=== PATIENT | female | born 1970 | race Caucasian/White ===

== ENCOUNTER 2017-03-11 20:09 | Emergency (ER) | payer MEDICAID ==
[~2017-03-11] VITALS: Ht 160 cm; Wt 76.7 kg
[2017-03-11 20:12] VITALS: BP 142/90
--- NOTE | 2017-03-11 20:45 | NUR ---
TO ER BED 8
--- NOTE | 2017-03-11 20:59 | NUR ---
PT IS 46/F BIB SELF TO ED WITH ABD PAIN X 1 WEEK, WITH N/V . DENIES D; SKIN IS PINK/WARM/DRY; AAOX4 WITH EVEN AND STEADY GAIT; LUNGS CLEAR BL; HR EVEN AND REGULAR; PT DENIES ANY FEVER, CP, SOB, OR COUGH AT THIS TIME; PATIENT STATES PAIN OF 9/10 AT THIS TIME; VSS; PATIENT POSITIONED FOR COMFORT; HOB ELEVATED; BEDRAILS UP X2; BED DOWN. ER MD MADE AWARE OF PT STATUS.
[2017-03-11] MEDS ORDERED: DICYCLOMINE HCL LIQUID 10 MG/5 ML UDC PO ONE (21:00)
[2017-03-11] MEDS ORDERED: ONDANSETRON 4 MG/2 ML VIAL IVP ONE (21:00)
[2017-03-11] MEDS ORDERED: LIDOCAINE VISCOUS 2% 20 ML UDC PO ONE (21:00)
[2017-03-11] MEDS ORDERED: ALUMINUM HYD/MAG/SIMETHICONE 30 ML UDC PO ONE (21:00)
[2017-03-11] MEDS ORDERED: MORPHINE SULFATE 2 MG/ML SYR IVP ONE (21:25)
[2017-03-11] MEDS ORDERED: KETOROLAC 30 MG/ML VIAL IVP ONE (21:35)
[2017-03-11] MEDS ORDERED: NACL 0.9% 1,000 ML IV ONE (22:35)
--- NOTE | 2017-03-11 22:45 | NUR ---
PT RESTING IN BED NO SOB NOTED. WILL CONTINUE TO CLOSELY MONITOR
--- NOTE | 2017-03-11 23:25 | NUR ---
PT TAKEN OFF UNIT TO CT VIA WHEELCHAIR
--- NOTE | 2017-03-11 23:55 | NUR ---
PT BACK ON UNIT FROM CT
[2017-03-12 01:03] VITALS: BP 126/76
--- NOTE | 2017-03-12 01:04 | NUR ---
Patient discharged with v/s stable. Written and verbal after care instructions given and explained. Patient alert, oriented and verbalized understanding of instructions. Ambulatory with steady gait. All questions addressed prior to discharge. ID band removed. Patient advised to follow up with PMD. Rx of CIPRO, FLAGYL given. Patient educated on indication of medication including possible reaction and side effects. Opportunity to ask questions provided and answered.
== END 2017-03-12 01:03 | disposition home or self-care (01) ==
LOC: MED 20:09
DX: K52.9 Noninfective gastroenteritis and colitis, unspecified (principal); F17.210 Nicotine dependence, cigarettes, uncomplicated; Z88.0 Allergy status to penicillin
CPT/HCPCS: 36415; 74177; 80053; 81001; 82150; 83690; 84703; 85025; 87086; 96361; 96374; 96375; 99285; J1885; J2405; Q9967

== ENCOUNTER 2017-09-15 13:40 | Emergency (ER) | payer MEDICAID, MEDICARE ==
[~2017-09-15] VITALS: Ht 157.5 cm; Wt 75.3 kg
[2017-09-15 14:21] VITALS: BP 133/83
--- NOTE | 2017-09-15 14:54 | NUR ---
Patient ambulated to bed 11.
--- NOTE | 2017-09-15 14:55 | NUR ---
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 PT STATES SHE FEELS A LUMP L LABIA.DENIES DISCHARGE OR BLEEDING.AAOX4 WITH EVEN AND STEADY GAIT; LUNGS CLEAR BL; PATIENT STATES PAIN OF 10/10 AT THIS TIME; PATIENT POSITIONED FOR COMFORT; HOB ELEVATED; BEDRAILS UP X2; BED DOWN. ER MD MADE AWARE OF PT STATUS.
[2017-09-15] MEDS ORDERED: MORPHINE SULFATE 4 MG/ML SYR IM ONE (15:10)
[2017-09-15] MEDS ORDERED: KETOROLAC 30 MG/ML VIAL IVP ONE (15:10)
[2017-09-15] MEDS ORDERED: ONDANSETRON 4 MG/2 ML VIAL IVP ONE (15:10)
[2017-09-15] MEDS ORDERED: NACL 0.9% 1,000 ML IV SCH (15:10)
[2017-09-15 15:45] LABS: BASOPHILS # (AUTO) 0.3 K/uL (0.00-0.22); BASOPHILS % (AUTO) 1.6 % (0.0-2.0); EOSINOPHILS # (AUTO) 0.1 K/uL (0-0.4); EOSINOPHILS % (AUTO) 0.8 % (0.0-4.0); HEMATOCRIT 41.8 % (36-48); HEMOGLOBIN 13.7 g/dL (12.0-16.0); LYMPHOCYTES # (AUTO) 3.5 K/uL (2.5-16.5); MEAN CORPUSCULAR HEMOGLOBIN 29 pg (27-31); MEAN CORPUSCULAR HGB CONC 33 g/dL (33-37); MEAN CORPUSCULAR VOLUME 89 fL (80-94); MONOCYTES # (AUTO) 0.9 K/uL (0.8-1.0); MONOCYTES % (AUTO) 5.6 % (1.7-9.3); NEUTROPHILS # (AUTO) 11.2 K/uL (1.8-7.7); PLATELET COUNT (AUTO) 202 K/uL (140-450); RED BLOOD CELL COUNT(AUTO) 4.71 MIL/uL (4.20-5.40); RED CELL DISTRIBUTION WIDTH 12.1 % (11.6-13.7)
[2017-09-15 15:56] LABS: ANION GAP 10.6 (8-16); CARBON DIOXIDE 29.1 mmol/L (21-32); CREATININE 0.7 mg/dL (0.6-1.3); POTASSIUM 3.7 mmol/L (3.5-5.1)
[2017-09-15] MEDS ORDERED: cefTRIAXone 2,000 MG in DEXTROSE 5% 100 ML IV ONE (16:00)
[2017-09-15 16:01] LABS: ALBUMIN 3.2 g/dL (3.4-5.0); TOTAL BILIRUBIN 0.5 mg/dL (0.0-1.0)
[2017-09-15] MEDS ORDERED: cefTRIAXone 2,000 MG in NACL 0.9% 100 ML IV ONE (16:30)
[2017-09-15] MEDS ORDERED: cefTRIAXone 2,000 MG VIAL ONE (16:33)
--- NOTE | 2017-09-15 16:43 | NUR ---
Note jose m in EDM - 09/15/17 at 1644 by [email or web address] Patient appears to be resting comfortably in bed. BP 172/81; MADE AWARE. Respirations even and unlabored.WILL CONTINUE TO MONITOR.
[2017-09-15] MEDS ORDERED: MORPHINE SULFATE 4 MG/ML SYR IVP ONE (17:05)
[2017-09-15 17:27] LABS: APPEARANCE,URINE CLEAR (CLEAR); BILIRUBIN,URINE NEGATIVE (NEGATIVE); BLOOD, URINE TRACE-I (NEGATIVE); COLOR,URINE YELLOW (YELLOW); LEUKOCYTE ESTERASE ,URINE TRACE (NEGATIVE); NITRITE, URINE NEGATIVE (NEGATIVE); PH,URINE 5.5 (5.0-9.0); UGLUCOSE NEGATIVE (NEGATIVE)
[2017-09-15 17:40] VITALS: BP 115/69
--- NOTE | 2017-09-15 17:40 | NUR ---
Patient discharged with v/s stable. Written and verbal after care instructions given and explained. Patient alert, oriented and verbalized understanding of instructions. Ambulatory with steady gait. All questions addressed prior to discharge. ID band removed. Patient advised to follow up with PMD. Rx of IBUPROFEN, LEVAQUIN& NORCO given. Patient educated on indication of medication including possible reaction and side effects. Opportunity to ask questions provided and answered.
[2017-09-15 17:51] LABS: RBC,URINE 0-5 (RARE) /HPF (0-5); WBC,URINE 0-5 (RARE) /HPF (0-5)
== END 2017-09-15 15:12 | disposition home or self-care (01) ==
LOC: MED 13:40
DX: N90.7 Vulvar cyst (principal); Z88.0 Allergy status to penicillin
CPT/HCPCS: 36415; 76856; 80053; 81001; 83690; 84703; 85025; 96361; 96365; 96372; 96375; 99285; J0696; J1885; J2270; J2405; J7030; Q0092

== ENCOUNTER 2018-01-29 20:46 | Emergency (ER) | payer MEDICAID, MEDICARE ==
[~2018-01-29] VITALS: Ht 160 cm; Wt 73.0 kg
[2018-01-29 20:50] VITALS: BP 139/90
[2018-01-29 21:02] VITALS: BP 139/90
--- NOTE | 2018-01-29 21:03 | NUR ---
TO ER BED 10
[2018-01-29] MEDS ORDERED: NACL 0.9% 1,000 ML IV ONE (21:05)
--- NOTE | 2018-01-29 21:10 | NUR ---
ASSUMED CARE OF PT AT THIS TIME. C/O ELEVATED BLOOD SUGAR. PT DENIES ANY OTHER MEDICAL COMPLAINTS AT THIS TIME. DENIES N/V/D; SKIN IS PINK/WARM/DRY; AAOX4 WITH EVEN AND STEADY GAIT; LUNGS CLEAR BL; HR EVEN AND REGULAR; PT DENIES ANY FEVER, CP, SOB, OR COUGH AT THIS TIME; PATIENT STATES PAIN OF 0/10 AT THIS TIME; VSS; PATIENT POSITIONED FOR COMFORT; HOB ELEVATED; BEDRAILS UP X2; BED DOWN. ER MD MADE AWARE OF PT STATUS.
[2018-01-29 21:46] LABS: BASOPHILS % (AUTO) 0.3 % (0.0-2.0); EOSINOPHILS # (AUTO) 0.1 K/uL (0-0.4); EOSINOPHILS % (AUTO) 1.1 % (0.0-4.0); HEMOGLOBIN 14.1 g/dL (12.0-16.0); LYMPHOCYTES # (AUTO) 4.3 K/uL (2.5-16.5); LYMPHOCYTES % (AUTO) 39.3 % (20.5-51.1); MEAN CORPUSCULAR HEMOGLOBIN 30 pg (27-31); MEAN CORPUSCULAR HGB CONC 34 g/dL (33-37); MEAN CORPUSCULAR VOLUME 87.9 fL (80-94); MONOCYTES # (AUTO) 0.6 K/uL (0.8-1.0); MONOCYTES % (AUTO) 5.8 % (1.7-9.3); NEUTROPHILS # (AUTO) 5.8 K/uL (1.8-7.7); NEUTROPHILS % (AUTO) 53.5 % (42.2-75.2); PLATELET COUNT (AUTO) 179 K/uL (140-450); RED BLOOD CELL COUNT(AUTO) 4.78 MIL/uL (4.20-5.40); RED CELL DISTRIBUTION WIDTH 12.9 % (11.6-13.7); WHITE BLOOD COUNT (AUTO) 10.9 K/uL (4.8-10.8)
[2018-01-29 22:09] LABS: ANION GAP 9.6 (8-16); CARBON DIOXIDE 31.2 mmol/L (21-32); CREATININE 0.7 mg/dL (0.6-1.3); POTASSIUM 3.8 mmol/L (3.5-5.1)
--- NOTE | 2018-01-29 22:31 | NUR ---
Patient discharged with v/s stable. Written and verbal after care instructions given and explained. Patient alert, oriented and verbalized understanding of instructions. Ambulatory with steady gait. All questions addressed prior to discharge. ID band removed. Patient advised to follow up with PMD. Rx of METFORMIN given. Patient educated on indication of medication including possible reaction and side effects. Opportunity to ask questions provided and answered.
== END 2018-01-29 22:32 | disposition home or self-care (01) ==
LOC: MED 20:46
DX: E72.51 Non-ketotic hyperglycinemia (principal); Z88.0 Allergy status to penicillin
CPT/HCPCS: 36415; 80048; 82948; 85025; 99284; J7030

== ENCOUNTER 2020-04-01 08:04 | Day surgery (SDC) | payer MEDICAID, SELFPAY ==
[~2020-04-01] VITALS: Ht 157.5 cm; Wt 73.9 kg
[2020-04-01] MEDS ORDERED: fentaNYL 0.05 MG/ML VIAL ONE (10:38)
[2020-04-01] MEDS ORDERED: MIDAZOLAM 2 MG/2 ML VIAL ONE (10:44)
== END 2020-04-01 12:00 | disposition home or self-care (01) ==
LOC: MDS 08:04 → MMU 09:09 → MDS 12:00
PROVIDERS: ATTEND Internal Medicine Gastroenterology
DX: K21.9 Gastro-esophageal reflux disease without esophagitis (principal); E11.9 Type 2 diabetes mellitus without complications; R14.0 Abdominal distension (gaseous); E66.3 Overweight; I10 Essential (primary) hypertension; Z79.84 Long term (current) use of oral hypoglycemic drugs; Z79.899 Other long term (current) drug therapy; Z88.0 Allergy status to penicillin; Z11.59 Encounter for screening for other viral diseases
CPT/HCPCS: 36415; 43239; 81025; 86677; J2250; U0003; J3010